=== PATIENT | female | born 1950 | race Caucasian/White ===

== ENCOUNTER 2017-05-29 23:14 | Inpatient (IN) | payer OTHER ==
[~2017-05-29] VITALS: Ht 160 cm; Wt 73.0 kg
[2017-05-29 23:37] LABS: BASOPHILS # (AUTO) 0.1 K/uL (0.0-8.0); BASOPHILS % (AUTO) 1.1 % (0.0-2.0); EOSINOPHILS # (AUTO) 0.3 K/uL (0.0-0.7); EOSINOPHILS % (AUTO) 4.4 % (0.0-7.0); HEMATOCRIT 37.7 % (31.2-41.9); LYMPHOCYTES # (AUTO) 1.8 K/uL (20.0-40.0); LYMPHOCYTES % (AUTO) 26.6 % (20.5-51.5); MEAN CORPUSCULAR HEMOGLOBIN 31.6 uug (24.7-32.8); MEAN CORPUSCULAR HGB CONC 35 g/dL (32.3-35.6); MEAN CORPUSCULAR VOLUME 91.7 fL (75.5-95.3); MONOCYTES # (AUTO) 0.5 K/uL (2.0-10.0); MONOCYTES % (AUTO) 7.9 % (0.0-11.0); NEUTROPHILS # (AUTO) 4.1 K/uL (1.8-8.9); PLATELET COUNT (AUTO) 173 K/uL (179-408); RED BLOOD CELL COUNT(AUTO) 4.11 MIL/uL (3.63-4.92); WHITE BLOOD COUNT (AUTO) 6.9 K/uL (3.8-11.8)
[2017-05-29] MEDS ORDERED: RISP2TAB5 PO (23:42)
[2017-05-29] MEDS ORDERED: CEPH-570 PO (23:42)
[2017-05-29] MEDS ORDERED: METO50TA16 PO (23:42)
[2017-05-29] MEDS ORDERED: LEVO50TA PO (23:42)
[2017-05-29] MEDS ORDERED: DIVA250T4 PO (23:42)
[2017-05-29 23:57] LABS: BILIRUBIN,DIRECT 0.1 mg/dL (0.0-0.2); BILIRUBIN,TOTAL 0.4 mg/dL (0.2-1.0); CREATININE 1.2 mg/dL (0.6-1.3); POTASSIUM 4.7 mmol/L (3.5-5.1); TOTAL PROTEIN, SERUM 7.3 g/dL (6.4-8.2)
[2017-05-30 00:36] LABS: THYROID STIMULATING HORMONE 78.327 mIU/mL (0.358-3.740)
--- NOTE | 2017-05-30 00:55 | NUR ---
Pt. admitted to [facility]HU, under care of Dr. MAYA/BERNARDINO Belongs List completed
[2017-05-30 01:00] VITALS: BP 166/92
[2017-05-30] MEDS ORDERED: ACETAMINOPHEN 325 MG TABLET PO PRN (01:00)
[2017-05-30] MEDS ORDERED: MAGNESIUM HYDROXIDE 30 ML LIQUID UDC PO PRN (01:00)
[2017-05-30] MEDS ORDERED: MAG HYDROX/AL HYDROX/SIMETH 30 ML LIQUID UDC PO PRN (01:00)
[2017-05-30] MEDS ORDERED: TEMAZEPAM 7.5 MG CAPSULE PO PRN (01:00)
--- NOTE | 2017-05-30 01:00 | NUR ---
GPS: Pt. admitted to MHU, under care of Dr. MAYA/BERNARDINO.Belongs list completed.a/o x3 ambulatory.hx of schizophrenia and depression. no c/o pain or discomfort at this time. v/s taken and documented, assisted with adl's.instructed to call nurse for pain and assisted as needed. continue monitoring for safety.
[2017-05-30 02:00] VITALS: BP 145/88
[2017-05-30] MEDS: CLONAZEPAM 0.5 MG TABLET PO PRN (05:06)
--- NOTE | 2017-05-30 08:15 | NUR ---
RECEIVED Pt STANDING BY NURSE'S STATION, A/O X 3 WITH CLEAR SPEECH, NOTED PRESENT DELUSIONS. Pt IS ABLE TO HOLD CONVERSATION BUT IS TANGENTIAL AND EASILY SWITCHES FROM ONE SUBJECT TO ANOTHER. Pt IS PLEASANT AND CALM, ABLE TO VERBALIZE NEEDS. AMBULATES INDEPENDENTLY AND INITIATES INTERACTION. DENIES SI, CFS. AWAITING FURTHER ORDERS AND MEDS FROM PSYCHIATRIST AND PHYSICIAN.
[2017-05-30 08:20] VITALS: BP 159/91
[2017-05-30] MEDS: risperiDONE 1 MG TABLET PO SCH ×2 (11:01→20:03)
[2017-05-30] MEDS: DIVALPROEX SPRINKLE 125 MG CAP.SPRINK PO SCH ×2 (11:01→20:02)
[2017-05-30 15:51] VITALS: BP 146/86
[2017-05-30 19:58] VITALS: BP 156/77
[2017-05-31] MEDS: LEVOTHYROXINE SODIUM 50 MCG TABLET PO SCH (06:00)
--- NOTE | 2017-05-31 06:57 | NUR ---
RECEIVED Pt IN THE DAY ROOM EATING A SNACK. A+Ox3 WITH LIMITED INSIGHT INTO REASON FOR ADMISSION. Pt STATED SHE IS HERE BECAUSE I COULD NOT GET MY SHOT OF INVNICOLASA GERMAIN. APPEARED PARANOID AND HESITANT TO TAKE SCHEDULED DEPAKOTE AND RISPERDAL, REQUIRED PROMPTING AND ENCOURAGEMENT BEFORE TAKING. MEDICATIONS EXPLAINED TO HER, INCLUDING DOSAGE, FREQUENCY, TIMING, INDICATIONS, AND REPORTABLE S/E, Pt VERBALIZED UNDERSTANDING. EXHIBITS PRESSURED SPEECH AND FLAT AFFECT. Pt IS NEEDY WITH SNACKS, PERSONAL EFFECTS, AND CLOTHING, IS CONSTANTLY AT THE NURSES STATION ASKING FOR VARIOUS ITEMS REPEATEDLY, FREQUENT REDIRECTION PROVIDED. Pt FOCUSED ON DISCHARGE, KEEPS ASKING ABOUT CATCHING A BUS TO [place] SO SHE CAN GO TO [place].
[2017-05-31 08:00] VITALS: BP 155/107
--- NOTE | 2017-05-31 09:15 | NUR ---
RECEIVED Pt STANDING BY NURSE'S STATION, A/O X 3 WITH CLEAR BUT PRESSURED SPEECH, NOTED PRESENT DELUSIONS. Pt IS ABLE TO HOLD CONVERSATION BUT IS TANGENTIAL AND EASILY SWITCHES FROM ONE SUBJECT TO ANOTHER. Pt IS PLEASANT AND CALM, ABLE TO VERBALIZE NEEDS. AMBULATES INDEPENDENTLY AND INITIATES INTERACTION. DENIES SI, CFS. COMPLIANT WITH MEDS AND CARE STAFF, Pt STATED, "ARE YOU SURE I HAVE TO TAKE THESE PILLS? I USUALLY DON'T TAKE THEM." AFTER ENCOURAGEMENT AND EXPLANATION FROM NURSE, Pt TOOK ALL MEDS. Pt CONTINUOUSLY ASKING QUESTIONS REGARDING DISCHARGE, DELUSIONAL WITH ASPECTS OF DISCHARGE STATING, "I NEED TO CALL MY COUSIN NOW SO HE KNOWS WHAT TIME TO PICK ME UP TODAY." Pt REDIRECTED BY NURSE, CALMLY WENT BACK TO ROOM. IN STABLE CONDITION AT THIS TIME.
[2017-05-31] MEDS: DIVALPROEX SPRINKLE 125 MG CAP.SPRINK PO SCH ×2 (09:21→20:02)
[2017-05-31] MEDS: risperiDONE 1 MG TABLET PO SCH ×2 (09:21→20:01)
[2017-05-31] MEDS: METOPROLOL TARTRATE 50 MG TABLET PO SCH ×2 (09:21→17:06)
[2017-05-31 16:32] VITALS: BP 176/105
[2017-05-31 20:00] VITALS: BP 142/91
[2017-06-01] MEDS: LEVOTHYROXINE SODIUM 50 MCG TABLET PO SCH (06:01)
[2017-06-01 07:30] VITALS: BP 166/103
[2017-06-01 07:54] LABS: *BILIRUBIN,URIN NEGATIVE (NEGATIVE); *BLOOD, URINE NEGATIVE (NEGATIVE); *CLARITY,URINE SLIGHTLY CLOUDY (CLEAR); *COLOR,URINE LIGHT YELLOW (YELLOW); *KETONES,URINE NEGATIVE (NEGATIVE); *PROTEIN,URINE 1+ (NEGATIVE); *UROBILINOGEN,URINE 0.2 E.U./dl (NORMAL); LEUKOCYTE ESTERASE ,URINE 2+ (NEGATIVE); NITRITE, URINE NEGATIVE (NEGATIVE); UGLUCOSE NEGATIVE (NEGATIVE)
[2017-06-01 08:01] LABS: BACTERIA,URINE MODERATE /HPF (NONE SEEN); RBC,URINE 0-3 /HPF (0-3); WBC,URINE 20-50 /HPF (0-3)
[2017-06-01 08:02] LABS: SQUAMOUS EPITHELIAL CELL,UR FEW /HPF (NONE SEEN)
[2017-06-01] MEDS: risperiDONE 1 MG TABLET PO SCH ×2 (09:11→21:45)
[2017-06-01] MEDS: DIVALPROEX SPRINKLE 125 MG CAP.SPRINK PO SCH ×2 (09:11→21:45)
[2017-06-01] MEDS: METOPROLOL TARTRATE 50 MG TABLET PO SCH ×2 (09:12→16:51)
--- NOTE | 2017-06-01 11:12 | NUR ---
Relayed pt's positive UA to Dr. Castillo. Urine Cx still pending. Pt allergic to penicillins. Per MD, he will take care of it. No new orders at this time.
[2017-06-01] MEDS ORDERED: LEVOFLOXACIN 500 MG TABLET PO SCH (11:15)
[2017-06-01] MEDS ORDERED: LEVOFLOXACIN 500 MG TABLET PO ONE (11:45)
--- NOTE | 2017-06-01 12:15 | NUR ---
UR Note: Rn Hedis provided clinical review to [employer] Management Handler, Deepa Love ([phone]). Awaiting authorization. SW will continue to follow-up.
--- NOTE | 2017-06-01 14:31 | NUR ---
Firearms Report: Claim Clerk completed and submitted [employer] Firearms Report on 06/01/17.
--- NOTE | 2017-06-01 15:34 | NUR ---
Initial Discharge Instructions: Patient was living at home alone [[address] [place] [address]]. Per patient, she does not want to return there. Patient would like to "be hospitalized again" for her "anorexia." Spoke with patient's caseworker intake through [facility], who reports pt would not be safe to return home to her apartment at this time. SW will continue to collaborate with pt, family, and MD regarding appropriate discharge disposition for this patient. SW will form a safe and proper discharge plan.
[2017-06-01 15:40] VITALS: BP 172/92
[2017-06-01] MEDS: CLONAZEPAM 0.5 MG TABLET PO PRN (16:52)
--- NOTE | 2017-06-01 18:43 | NUR ---
GPS: Pt remained stable during shift. Pt compliant with medications and plan of care. Noted pt ambulating ad sulma in unit, unassisted with steady gait. Able to provide self-care with staff guidance. Denies pain. No acute respiratory distress noted. Reoriented pt when she asks about being discharged to the right unit in regards to her delusions of having anorexia nervosa and being malnourished. Pt redirectable. Received Levaquin for her UTI, no adverse side effects noted. Continent and voiding freely. Noted with clear yellow urine. Denies burning sensation. All needs met at this time. Will continue to monitor for change.
[2017-06-01 20:00] VITALS: BP 139/94
--- NOTE | 2017-06-01 21:00 | NUR ---
RECEIVED PATIENT IN THE DAY ROOM. SHE IS NOTED A/O X 3. SHE IS ABLE TO AMBULATE WITH STEADY GAIT. POOR INSIGHT AND JUDGMENT NOTED TO THE REASON FOR HER ADMISSION; PREOCCUPIED, PATIENT STATED, "I DON'T NEED MEDICATIONS, I HAVE NEVER TAKEN MEDICATIONS, I DON'T NEED MEDICATION." "I AM HERE BECAUSE THEY WANTED TO GIVE ME A SHOT OF HALDOL DEC. BUT I DON'T NEED THIS." "I AM HOMELESS, DO YOU KNOW WHERE I WILL BE GOING"? PATIENT WAS REASSURED. SHE DENIES SI/AH/VH AT THIS TIME. PT IS COMPLIANT WITH SCHEDULED MEDICATIONS. SAFETY EMPHASIS. WILL CONTINUE TO MONITOR CLOSELY.
[2017-06-02] MEDS: LEVOTHYROXINE SODIUM 50 MCG TABLET PO SCH (06:02)
--- NOTE | 2017-06-02 07:07 | NUR ---
PATIENT SLEPT FOR APPROX 5.30 HRS THROUGH THE NIGHT. SHE REFUSED SLEEPING PILL LAST NIGHT.
[2017-06-02 07:30] VITALS: BP 150/89
[2017-06-02] MEDS: LEVOFLOXACIN 250 MG TABLET PO SCH (08:42)
[2017-06-02] MEDS: risperiDONE 1 MG TABLET PO SCH ×2 (08:44→20:52)
[2017-06-02] MEDS: DIVALPROEX SPRINKLE 125 MG CAP.SPRINK PO SCH ×3 (08:44→17:00)
[2017-06-02] MEDS: METOPROLOL TARTRATE 50 MG TABLET PO SCH ×2 (08:44→17:01)
--- NOTE | 2017-06-02 10:35 | NUR ---
UR Note: Crime Laboratory Analyst received call from [facility] Engineering Inspector, Deepa Love ([phone]). Patient authorized 3 additional days (06/02-06/04) with review on 06/04. AUTH# [id number]. SW will continue to follow up.
[2017-06-02 15:26] VITALS: BP 142/77
--- NOTE | 2017-06-02 18:21 | NUR ---
patient remains delusional about going home at 2200 tonight and appears to be responding to internal stimuli redirectable most of time continue to monitor for safety
[2017-06-02 20:00] VITALS: BP 151/86
--- NOTE | 2017-06-02 20:30 | NUR ---
RECEIVED PATIENT IN HER ROOM, SHE IS NOTED AWAKE A/O X 3. ABLE TO AMBULATE WITH STEADY GAIT AND ABLE TO MAKE HER NEEDS KNOWN. SHE CONTINUE PREOCCUPIED WITH HER DISCHARGE. SHE WAS NOTED WITH DISORGANIZED THOUGHTS, BLUNTED AFFECT, WITHDRAWN TO HER ROOM. SHE STATED, "WHAT DO I NEED TO GET DISCHARGED FOR THIS HOSPITAL"? SHE ALSO ASKED, "WHERE IS THE NEAR BUS STOP FORM THIS HOSPITAL". PATIENT WAS REASSURED AND REDIRECTED. FAIR INSIGHT AND JUDGMENT NOTED TO THE REASON FOR HER ADMISSION TO MHU. SHE REMAINS MEDICATION COMPLIANT. SAFETY EMPHASIS. WILL CONTINUE TO MONITOR CLOSELY.
--- NOTE | 2017-06-02 20:30 | NUR ---
PATIENT DENIES SI, SHE DENIES AH/V/A AT THIS TIME.
--- NOTE | 2017-06-03 05:18 | NUR ---
PATIENT NOTED PACING THE HALLWAY, MENTALLY PREOCCUPIED. WHEN APPROACHED, SHE STATED "CAN YOU PLEASE LET THE DOCTOR KNOW THAT I WANT TO GO HOME. I CAN TAKE THE BUS". PATIENT WAS REASSURED AND REDIRECTED. SHE THEN STATED, "MY ORE MINER BLASTING IS AT THE LOBBY, PLEASE LET HIM IN". PATIENT WAS REASSURED AND REDIRECTED. MEDICATION WAS OFFERED FOR ANXIETY; HOWEVER, SHE REFUSED AND WENT BACK TO HER ROOM. WILL CONTINUE TO MONITOR
[2017-06-03] MEDS: LEVOTHYROXINE SODIUM 50 MCG TABLET PO SCH (06:00)
--- NOTE | 2017-06-03 07:00 | NUR ---
RECEIVED REPORT FROM ORACLE BPM DEVELOPER NURSE, RECEIVED PATIENT IN BED, NO ACUTE DISTRESS NOTED. COMPLIANT WITH MEDICATIONS AND CARE. NO COMPLAINTS OF PAIN AND DISCOMFORT NOTED. NO SI NOTED. PATIENT SEEMS CALM, NO AGITATION NOTED. COMFORT MEASURES PROVIDED. SAFETY PRECS OBSERVED. WILL CONTINUE TO MONITOR CLOSELY.
[2017-06-03 07:30] VITALS: BP 158/91
[2017-06-03] MEDS: risperiDONE 1 MG TABLET PO SCH ×2 (09:48→20:08)
[2017-06-03] MEDS: METOPROLOL TARTRATE 50 MG TABLET PO SCH ×2 (09:49→16:53)
[2017-06-03] MEDS: DIVALPROEX SPRINKLE 125 MG CAP.SPRINK PO SCH ×6 (09:49→18:02)
[2017-06-03] MEDS: LEVOFLOXACIN 250 MG TABLET PO SCH (09:49)
[2017-06-03 14:42] VITALS: BP 130/87
[2017-06-03] MEDS: CLONAZEPAM 0.5 MG TABLET PO PRN (18:13)
--- NOTE | 2017-06-03 19:02 | NUR ---
PATIENT NOTED WITH ELEVATED BLOOD PRESSURE AT 190/83, CALLED AND PAGED DR. LEBRON, CALLED BACK AFTER 5 MINS. RECEIVED ORDERS FOR CLONIDINE 0.1 MG PO Q6PRN FOR SBP >160. ORDERS NOTED AND CARRIED OUT. WILL CONTINUE TO MONITOR.
[2017-06-03 20:00] VITALS: BP 169/99
[2017-06-03] MEDS: CLONIDINE HCL 0.1 MG TABLET PO PRN (20:09)
--- NOTE | 2017-06-03 21:19 | NUR ---
RECEIVED Pt SLEEPING IN BED, EASILY AROUSED, A/O X 3 BUT NOTED CONFUSION AND FORGETFULNESS. SLIGHT DELUSION NOTED REGARDING CARE PLAN AND MEDS BUT ABLE TO BE REDIRECTED. Pt COMPLIANT WITH MEDS AND CARE STAFF, NO AGGRESSIVE BEHAVIORS NOTED. BP WAS RUNNING HIGH THROUGHOUT THE DAY, DAY SHIFT NURSE RECEIVED ORDER FOR CATAPRES 0.1 MG PO PRN IF SBP >160. BP TONIGHT WAS 169/99, ADMINISTERED CATAPRES 0.1 MG PO PRN PER MD ORDER ALONG WITH ROUTINE NIGHT MEDS. WILL CONTINUE TO MONITOR Pt BP CLOSELY. DENIES PAIN OR DISCOMFORT AT THIS TIME, Pt SLEEPING IN BED.
--- NOTE | 2017-06-04 06:28 | NUR ---
Pt SLEPT WELL THROUGHOUT THE NIGHT, DENIES PAIN AT THIS TIME, NO DISTRESS NOTED, NO AGGRESSIVE BEHAVIOR NOTED. COMPLIANT WITH MEDS AND CARE STAFF.
--- NOTE | 2017-06-04 07:00 | NUR ---
RECEIVED REPORT FROM SUPERVISOR HEAT TREATING NURSE. PATIENT IN BED ASLEEP NO ACUTE DISTRESS NOTED. NO AGITATION/SI NOTED AT THIS TIME. CONTINUES TO BE COMPLIANT WITH MEDICATIONS. NO C/O PAIN/DISCOMFORT. COMFORT MEASURES PROVIDED. WILL CONTINUE TO MONITOR
[2017-06-04] MEDS: CLONIDINE HCL 0.1 MG TABLET PO PRN ×2 (07:04→16:51)
[2017-06-04] MEDS: LEVOTHYROXINE SODIUM 50 MCG TABLET PO SCH (07:04)
--- NOTE | 2017-06-04 07:26 | NUR ---
Pt BP AT 0645 WAS 169/79, GIVEN CATAPRES 0.1 MG PO PRN PER MD ORDER. WILL ENDORSE TO DAY SHIFT TO MONITOR BP CLOSELY THROUGHOUT SHIFT.
[2017-06-04] MEDS: LEVOFLOXACIN 250 MG TABLET PO SCH (08:46)
[2017-06-04] MEDS: risperiDONE 1 MG TABLET PO SCH ×2 (08:46→20:34)
[2017-06-04] MEDS: METOPROLOL TARTRATE 50 MG TABLET PO SCH ×2 (08:47→16:52)
[2017-06-04] MEDS: DIVALPROEX SPRINKLE 125 MG CAP.SPRINK PO SCH ×2 (08:47→16:51)
[2017-06-04 10:09] VITALS: BP 155/68
--- NOTE | 2017-06-04 14:46 | NUR ---
Discharge Planning Note: At 0815, Spoke with patient's APS worker, Lesleylarissa Manzano ([phone]) and patient's [facility] Public Guardian, Valerie Pearce ([phone]) who expressed desire to LPS conserve the patient. Provided education that the patient must be in [facility] for LPS conservation of the patient by [facility] to begin. Workers asked this typewriters functional tester to send inquiry to [facility] for a hospital to hospital transfer. Spoke with Brittany in intake ([phone]) and faxed inquiry ([phone]) who presented pt's case to medical coding technician. Pt's inquiry was accepted. Per Brittany, pt is #3 on the waiting list for admission. SW will continue to follow-up. At 1330, Follow-up call made to APS worker and Public Guardian to update on status for admission to [facility]. Discussed potential B&C placement for patient as secondary option as well. Per wishes, [facility] placement is ideal. At 1345, SW reached out to [email or web address] Services for B&C placement in [facility] ([phone]). software quality assurance specialist found 2 options in [facility]. Spoke with PG about options, and the B&C's were out of huntley range for the patient. Discussed options of B&C placement in [place] for safe placement as well. PG did not seem interested in this option, and mentioned that getting patient admitted to [facility] was best option. PG requested this typewriters functional tester reach out to pt's Federal Mediation Commissioner, Aliyah Kingston ([phone]) to discuss placement options in [facility]. This typewriters functional tester placed call to test case developer and left a message. SW also reached out to Stephanie at [facility] ([phone]) for B&C for patient. Per Stephanie, there is a placement for the patient within her budget in the [facility]. At 1515, received call back from pt's Federal Mediation Commissioner, Aliyah Kingston ([phone]). Per worker, there is a B&C in [place], [place] within patient's huntley range. Placed call to [facility] [[facility] [address] [place] [id number]; [phone]]. Left message for bariatric program coordinator, Landy Walker to call back. SW will continue to follow-up.
[2017-06-04 16:26] VITALS: BP 187/85
--- NOTE | 2017-06-04 16:51 | NUR ---
PATIENT NOTED WITH ELEVATED BLOOD PRESSURE 187/85, ADMINISTERED CLONIDINE 0.1 MG Q6PRN. WILL CONT. TO MONITOR.
[2017-06-04] MEDS: CLONAZEPAM 0.5 MG TABLET PO PRN (18:23)
--- NOTE | 2017-06-04 18:26 | NUR ---
PATIENT RECEIVED IN BED, ASLEEP. ELEVATED BLOOD PRESSURES STILL PRESENT. Pt. S/S OF ANXIETY NOTED ADMINISTERED ATIVAN PRN. PATIENT DENIES PAIN/DISCOMFORT. ATE DINNER WITH GOOD APPETITE. ALL NEEDS ATTNEDED AND ANTICIPATED. WILL ENDORSE ACCORDINGLY.
[2017-06-04 20:00] VITALS: BP 161/85
[2017-06-05] MEDS: LEVOTHYROXINE SODIUM 50 MCG TABLET PO SCH (06:00)
--- NOTE | 2017-06-05 06:47 | NUR ---
GPS: REMAIN DELUSIONAL THROUGH THE NIGHT. COOPERATIVE WITH CARE.SLEPT 3 HRS ONLY THROUGHOUT THE NIGHT.RESTORIL OFFERED FOR SLEEP.BUT PATIENT REFUSED TO TAKE IT STATED I AM OK I DON'T NEED IT. CONTINUE MONITORING FOR SAFETY.
[2017-06-05 07:30] VITALS: BP 177/86
[2017-06-05] MEDS: DIVALPROEX SPRINKLE 125 MG CAP.SPRINK PO SCH ×2 (08:04→16:07)
[2017-06-05] MEDS: risperiDONE 1 MG TABLET PO SCH ×2 (08:04→20:10)
[2017-06-05] MEDS: NITROFURANTOIN/NITROFURAN MAC 100 MG CAPSULE PO SCH ×2 (08:04→20:09)
[2017-06-05] MEDS: METOPROLOL TARTRATE 50 MG TABLET PO SCH ×2 (08:04→16:07)
--- NOTE | 2017-06-05 08:51 | NUR ---
UR Note: On 06/04/17, provided clinical review to [employer] Senior Sergeant, Deepa Love ([phone]). AUTH #[id number]. On 06/05/17 at 0850, received call from Deepa Love ([phone]). Patient authorized 3 additional days (06/05-06/07) with review on 06/08. AUTH# [id number]. SW will continue to follow up.
[2017-06-05 15:06] VITALS: BP 140/77
[2017-06-05] MEDS: CLONIDINE HCL 0.1 MG TABLET PO PRN (20:10)
[2017-06-05 20:11] VITALS: BP 166/73
--- NOTE | 2017-06-05 21:15 | NUR ---
RECEIVED Pt IN BED, SLEEPING BUT EASILY AROUSED, A/O X 3 BUT FORGETFUL AND NOTED SLIGHT CONFUSION. Pt IS COOPERATIVE AND COMPLIANT WITH MEDS AND CARE STAFF. Pt IS CALM AND PLEASANT, AGREED TO TAKE NIGHT MEDS AND WENT BACK TO SLEEP AFTER TAKING MEDS.
[2017-06-06] MEDS: LEVOTHYROXINE SODIUM 50 MCG TABLET PO SCH (06:31)
--- NOTE | 2017-06-06 06:52 | NUR ---
Pt SLEPT INTERMITTENTLY THROUGHOUT THE NIGHT BUT WAS ALWAYS REDIRECTED BACK TO BED AND WENT BACK TO SLEEP EASILY. COMPLIANT WITH MEDS AND CARE STAFF THIS MORNING.
[2017-06-06 07:30] VITALS: BP 161/78
--- NOTE | 2017-06-06 07:35 | NUR ---
Shift report given by nightshift RN. Pt in fair condition. No behavioral manifestation during noc shift. Compliant with medication. In bed awake. A&O to person and place. No SOB. Denies pain at this time. Will continue to monitor for change.
[2017-06-06] MEDS: NITROFURANTOIN/NITROFURAN MAC 100 MG CAPSULE PO SCH ×2 (08:28→20:58)
[2017-06-06] MEDS: DIVALPROEX SPRINKLE 125 MG CAP.SPRINK PO SCH ×2 (08:29→17:55)
[2017-06-06] MEDS: METOPROLOL TARTRATE 50 MG TABLET PO SCH ×2 (08:29→17:56)
[2017-06-06] MEDS: risperiDONE 1 MG TABLET PO SCH ×2 (08:29→20:59)
[2017-06-06 15:00] VITALS: BP 191/91
[2017-06-06] MEDS: CLONIDINE HCL 0.1 MG TABLET PO PRN (15:09)
[2017-06-06 16:10] VITALS: BP 153/78
--- NOTE | 2017-06-06 17:14 | NUR ---
Pt remained in fair condition during shift. Receiving Macrobid 100mg PO Q12hrs for UTI. No adverse side effects noted. Pt continent and voiding freely. Denies burning sensation. Noted with clear yellow urine. Denies difficulty voiding. Pt continues to be withdrawn and isolative at times. Anxious and irritable. Elevated BP managed with PRN Clonidine 0.1mg PO. Denies pain. All needs met at this time. Took all due meds. Will continue to monitor for change.
[2017-06-06 20:30] VITALS: BP 158/76
--- NOTE | 2017-06-06 22:55 | NUR ---
resting in bed at beginning of shift. received in fair condition. On macrobid for UTI. No signs of itching or burning upon urination. compliant with medications. Needs attended. Denies any pain nor any discomfort. will monitor patient. tolerated po meds well. BP 191/91 HR 78 resp 18 Temp 98.4 pulse ox 98% RA. No signs of delusions or hallucinations. BP meds given. Will monitor patient's BP. No acute distress noted.
--- NOTE | 2017-06-06 23:09 | NUR ---
latest BP 158/76 HR 76 resp 18 temp 98.2 pulse ox 95 % RA. Denies any pain nor any discomfort. Slept early. Calm and quiet.
[2017-06-07] MEDS: LEVOTHYROXINE SODIUM 50 MCG TABLET PO SCH (06:33)
--- NOTE | 2017-06-07 07:15 | NUR ---
GPS: Shift report given by nightshift RN. Pt without significant change in condition during noc shift. Pt was calm and compliant with plan of care, took all due meds and slept well. No behavioral manifestations noted during noc shift. Rec'd in bed awake. In no acute distress noted. Denies pain. Will continue to monitor for change.
[2017-06-07 07:30] VITALS: BP 156/84
[2017-06-07] MEDS: risperiDONE 1 MG TABLET PO SCH ×2 (08:09→20:17)
[2017-06-07] MEDS: DIVALPROEX SPRINKLE 125 MG CAP.SPRINK PO SCH ×2 (08:10→16:49)
[2017-06-07] MEDS: METOPROLOL TARTRATE 50 MG TABLET PO SCH ×2 (08:10→16:49)
[2017-06-07] MEDS: NITROFURANTOIN/NITROFURAN MAC 100 MG CAPSULE PO SCH ×2 (08:10→20:17)
[2017-06-07] MEDS ORDERED: ATORVASTATIN 40 MG TABLET PO SCH (10:15)
[2017-06-07 15:33] VITALS: BP 168/86
[2017-06-07 18:00] VITALS: BP 180/80
[2017-06-07] MEDS: CLONIDINE HCL 0.1 MG TABLET PO PRN (18:21)
[2017-06-07] MEDS: ATORVASTATIN 40 MG TABLET PO SCH (20:17)
[2017-06-07 20:41] VITALS: BP 155/63
--- NOTE | 2017-06-08 06:02 | NUR ---
GPS: REMAIN DELUSIONAL, KEEP COMING TO NURSING STATION AND STATED I AM GOING HOME AMBULANCE IS WAITING FOR ME. Pt SLEPT 3:30 HRS THROUGHOUT THE NIGHT. PATIENT OCC PACING IN HALLWAY BUT REDIRECTED BACK TO BED AND WENT BACK TO SLEEP EASILY. COMPLIANT WITH MEDICATIONS AND CARE. CONTINUE PLAN OF CARE.
[2017-06-08] MEDS: LEVOTHYROXINE SODIUM 50 MCG TABLET PO SCH (06:26)
--- NOTE | 2017-06-08 07:35 | NUR ---
GPS: Shift report given by nightshift REWINDER OPERATOR. Pt without significant change in condition during noc shift. Rec'd pt in bed awake. Noted getting up and pacing the hallways then going back to bed. Per report, pt with delusion of being discharged last night. In fair condition at this time. No s/s of acute distress noted. Will monitor for change.
[2017-06-08] MEDS: risperiDONE 1 MG TABLET PO SCH ×2 (08:24→20:32)
[2017-06-08] MEDS: NITROFURANTOIN/NITROFURAN MAC 100 MG CAPSULE PO SCH ×2 (08:24→20:32)
[2017-06-08] MEDS: DIVALPROEX SPRINKLE 125 MG CAP.SPRINK PO SCH ×2 (08:24→17:26)
[2017-06-08 08:28] VITALS: BP 158/80
[2017-06-08] MEDS: METOPROLOL TARTRATE 50 MG TABLET PO SCH ×2 (08:31→17:26)
[2017-06-08] MEDS: CLONIDINE HCL 0.1 MG TABLET PO PRN (13:35)
--- NOTE | 2017-06-08 15:30 | NUR ---
UR Note: Backup Administrative Coordinator provided clinical review to [employer] Public Housing Manager, Deepa Love ([phone]). AUTH #[id number]. Awaiting further authorization.
[2017-06-08 15:32] VITALS: BP 165/85
--- NOTE | 2017-06-08 18:17 | NUR ---
GPS: Pt remained in fair condition during shift. Denies pain. Was up today and watching TV in day room. Denies pain. Noted with delusions. Stated that "my heavenly father does not want me to keep taking these medications." Educated pt on risks vs benefits on medication compliance. Pt took all due meds with much prompting needed. Pt also with delusion of being discharged today. Reoriented as needed. Redirectable. All needs met at this time. Will continue to monitor.
[2017-06-08 20:22] VITALS: BP 120/70
[2017-06-08] MEDS: ATORVASTATIN 40 MG TABLET PO SCH (20:32)
--- NOTE | 2017-06-08 21:10 | NUR ---
Received pt awake, alert, orientedx3. pt shows no signs of distress. Pt vital signs within normal limit. Pt keep walking down the hallway to look for her nurse. Initially pt refused to take her prescribed medication but after encouragement she took her medications. Pt is delusional and stating that " God wants her to stop taking her medications because she can be better without it." She also states that she just want to take her Synthroid in the morning and she wants to talk with her doctor. She's stating that she wants to go to the ER because of her goiter and the water goes through the wrong hole. Reorientation and redirection needed with the pt. Safety and comfort provided. Will continue to monitor.
[2017-06-09] MEDS: LEVOTHYROXINE SODIUM 50 MCG TABLET PO SCH (06:38)
--- NOTE | 2017-06-09 06:51 | NUR ---
Pt slept intermittently. Shows no signs of distress. Prescribed medication given and pt tolerated it well. Pt showered this morning.Safety and comfort provided. All needs are met.Will endorse to dayshift nurse to closely monitor the patients behavior.
[2017-06-09 07:30] VITALS: BP 156/86
[2017-06-09] MEDS: DIVALPROEX SPRINKLE 125 MG CAP.SPRINK PO SCH ×2 (08:13→16:16)
[2017-06-09] MEDS: risperiDONE 1 MG TABLET PO SCH ×2 (08:14→20:35)
[2017-06-09] MEDS: METOPROLOL TARTRATE 50 MG TABLET PO SCH ×2 (08:14→16:16)
--- NOTE | 2017-06-09 10:13 | NUR ---
DC Planning Note: On 06/08/17 RYLEE faxed B&C packet to Lynn Walker at [facility] in [place], [place] ([phone]; t. [phone]). Per Fe, she will not be able to give answer regarding patient's acceptance for "7-10 days." SW attempted to find B&C placement in [facility], and [facility] key account representative, Radha ([phone]) came to assess the patient over the weekend. SW placed call to Radha. Per Radha, the patient was not suitable for her placement as patient reported that she would not take medications once she was out of the hospital. RYLEE consulted with JIGGER MACHINE OPERATOR Flores Alegria regarding case. Per recommendations, patient needs to be placed back in care of her Events Traffic Controller. RYLEE placed call to patient's Events Traffic Controller, Aliyah Kingston ([phone]) regarding this information. Events Traffic Controller was unhappy with his information and expressed concern about patient's safety if she returns home. At 0900 on 06/09/17, received call from pt's APS worker, Lesley Manzano ([phone]) who stated that the [facility] Public Guardian's Office was going to attempt to call the Photographic Process Attendant at [facility] to have patient admitted there so that they can attempt to conserve the patient. At 1000, RYLEE spoke with pt's protective services case worker, Aliyah to discuss DC options further. Explored option with protective services case worker of having pt DC back home in [place] while work on placement at [facility] with Lynn Walker. Events Traffic Controller expressed doubts about this plan, and reported that Public Guardian's Office is attempting to have the patient admitted to [facility]; however, PG needed to know how long the patient was authorized by insurance for her stay. At time of call, RYLEE is awaiting further authorization from the [facility] Events Traffic Controller, Deepa ([phone]). RYLEE and Events Traffic Controller, Aliyah agreed to follow-up once information about authorization was obtained. RYLEE will continue to collaborate with pt, case workers, FABIAN Alegria, and . Addendum: 06/09/17 at [address] At 1100, consulted with food supervisor, Conner Alegria regarding DC planning for the patient. Per recommendations, plan is for pt to DC back home [[address] [place] [address]] on 06/10 under care of her protective services case worker. Placed call to pt's protective services case worker, Aliyah ([phone]) and left message regarding plan for pt to DC tomorrow to her care. RYLEE will continue to follow-up.
--- NOTE | 2017-06-09 13:10 | NUR ---
UR Note: Nematologist received call from [facility] Broiler Chef Or Cook, Deepa Love ([phone]). Patient authorized 3 additional days (06/08-06/10) with review on 06/10. AUTH# [id number]. SW will continue to follow up.
--- NOTE | 2017-06-09 13:35 | NUR ---
Patient on cardiac diet, requesting Barbecue chicken for tomorrow's lunch ,oral intake lt36-111% of meals, RD will approve barbecue chicken at this time, this will meet the nutrition guideline for therapeutic -Cardiac diet. Addendum: 06/09/17 at [address] Amended: Links added.
[2017-06-09 15:24] VITALS: BP 143/85
--- NOTE | 2017-06-09 20:00 | NUR ---
RECEIVED PATIENT IN THE HALLWAY, SHE IS ABLE TO AMBULATE WITH STEADY GAIT AND ABLE TO MAKE HER NEEDS KNOWN. SHE IS NOTED A/O X 3. CONTINUE FOCUS/FIXED ON HER DISCHARGED. HYPERVERBAL, FAIR INSIGHT INTO HER ADMISSION TO MHU. COMPLIANT WITH MEDICATION REGIMENT, DIET AND PLAN OF CARE. SAFETY EMPHASIS. WILL CONTINUE TO MONITOR CLOSELY.
[2017-06-09] MEDS: ATORVASTATIN 40 MG TABLET PO SCH (20:34)
[2017-06-09 20:55] VITALS: BP 147/84
[2017-06-10] MEDS: LEVOTHYROXINE SODIUM 50 MCG TABLET PO SCH (06:00)
--- NOTE | 2017-06-10 08:10 | NUR ---
DC Note: Patient will be discharged to the care of her Floor Waxer, Aliyah Kingston [[address] [place] [address]; [phone]] via taxi at 10:30am. Spoke with Aliyah ([phone]) who is aware and agreeable with discharge plans. Patient is aware of discharge plans. Left messages for patients APS Worker, Lesley Manzano ([phone]) and pts Public Guardian, Valerie Pearce ([phone]) to alert about patients discharge. Patient will continue to follow-up with her Primary Care Physician, Dr. Anna Marie Manzanares [[address], [address] [place] [address]; [phone]]. Patient will also continue to follow-up with her outpatient Psychiatrist, Dr. Zach Dixon [[address], [address] [place] [address]; [phone]]. Patient was given referrals for the [facility] [[address], [place]; [phone]], [facility] ([phone]), and [facility] [[facility] , [place] [address]; ].
[2017-06-10] MEDS: DIVALPROEX SPRINKLE 125 MG CAP.SPRINK PO SCH ×2 (09:37→17:00)
[2017-06-10] MEDS: risperiDONE 1 MG TABLET PO SCH (09:37)
[2017-06-10 09:38] VITALS: BP 180/76
[2017-06-10] MEDS: METOPROLOL TARTRATE 50 MG TABLET PO SCH ×2 (09:38→17:00)
--- NOTE | 2017-06-10 14:14 | NUR ---
PATIENT DISCHARGED AT 11 30 AM TODAYWITH ALL BELONGIINS AND NFOLLOW UP PAPER WORK VIA TAXI TO TO [facility] IN NO ACUTE DISTRESS
--- NOTE | 2017-06-10 16:01 | NUR ---
UR Note: Plastic Worker provided discharge clinicals to [employer] Bank Advisor, Deepa Love ([phone]). AUTH #[id number].
== END 2017-06-10 11:30 | disposition home or self-care (01) | DRG 885 ==
LOC: ER 23:23 → GPS 05-30 00:29
PROVIDERS: ADMIT Psychiatry & Neurology Psychiatry; ATTEND Internal Medicine
PROC: 0HBRXZZ Excision of Toe Nail, External Approach (ICD-10-PCS; principal; 2017-06-03)
PROC: 0HDMXZZ Extraction of Right Foot Skin, External Approach (ICD-10-PCS; principal; 2017-06-03)
PROC: 0HDNXZZ Extraction of Left Foot Skin, External Approach (ICD-10-PCS; principal; 2017-06-03)
DX: F25.9 Schizoaffective disorder, unspecified (principal); Z91.128 Patient's intentional underdosing of medication regimen for other reason; E03.9 Hypothyroidism, unspecified; N39.0 Urinary tract infection, site not specified; I10 Essential (primary) hypertension; F41.9 Anxiety disorder, unspecified; S90.122A Contusion of left lesser toe(s) without damage to nail, initial encounter; S90.121A Contusion of right lesser toe(s) without damage to nail, initial encounter; X58.XXXA Exposure to other specified factors, initial encounter; Y92.89 Other specified places as the place of occurrence of the external cause; R23.4 Changes in skin texture; Z88.0 Allergy status to penicillin; B96.20 Unspecified Escherichia coli [E. coli] as the cause of diseases classified elsewhere; E78.5 Hyperlipidemia, unspecified; Z79.899 Other long term (current) drug therapy; Z87.440 Personal history of urinary (tract) infections
CPT/HCPCS: 36415; 80164; 84443; 85025; 87077; 87086; A4663